=== PATIENT | female | born 1985 | race African-American/Black ===

== ENCOUNTER 2016-10-05 20:28 | Emergency (ER) | payer OTHER ==
[2016-10-05] MEDS ORDERED: Ibuprofen TAB* 400 MG PO ONE (21:05)
[2016-10-05] MEDS ORDERED: Penicillin VK TAB* 250 MG PO ONE ×2 (21:05→21:39)
--- NOTE | 2016-10-05 21:16 | ED ---
Throat Pain/Nasal Congestion - HPI Summary HPI Summary: Patient presents with right sided facial, ear and dental pain since yesterday. - History of Current Complaint Chief Complaint: EDDentalPain Time Seen by Provider: 10/05/16 20:48 Hx Obtained From: Patient Onset/Duration: Gradual Onset Severity: Severe Associated Signs And Symptoms: Positive: Negative Cough: None - Epiglottits Risk Factors Epiglottis Risk Factors: Negative - Allergies/Home Medications Allergies/Adverse Reactions: Allergies Allergy/AdvReac Type Severity Reaction Status Date / Time Eggs or Egg-derived Products Allergy Unknown Unknown Verified 09/09/14 09:21 Reaction Details mushrooms Allergy Unknown Unknown Uncoded 09/09/14 09:21 Reaction Details PMH/Surg Hx/FS Hx/Imm Hx Endocrine/Hematology History: Denies: Hx Diabetes, Hx Thyroid Disease Cardiovascular History: Denies: Hx Hypertension Respiratory History: Reports: Hx Asthma Denies: Hx Chronic Obstructive Pulmonary Disease (COPD) GI History: Denies: Hx Ulcer - Immunization History Date of Tetanus Vaccine: unsure Date of Influenza Vaccine: never Infectious Disease History: No Infectious Disease History: Denies: Hx Clostridium Difficile, Hx Hepatitis, Hx Human Immunodeficiency Virus (HIV), Hx of Known/Suspected MRSA, Hx Shingles, Hx Tuberculosis, Traveled Outside the [place] in Last 30 Days - Family History Known Family History: Positive: Hypertension - Social History Occupation: Employed Full-time Lives: With Family Alcohol Use: Occasionally Substance Use Type: Reports: None Hx Tobacco Use: Yes Smoking Status (MU): Light Every Day Tobacco Smoker Length of Time of Smoking/Using Tobacco: 1/2 ppd Cessation Counseling: Patient Advised to Stop Review of Systems Negative: Fever, Chills Positive: Dental Pain, Ear Ache Negative: Cough All Other Systems Reviewed And Are Negative: Yes Physical Exam Triage Information Reviewed: Yes Vital Signs On Initial Exam: Initial Vitals Temp Pulse Resp BP 98.2 F 103 20 151/86 10/05/16 20:34 10/05/16 20:34 10/05/16 20:34 10/05/16 20:34 Vital Signs Reviewed: Yes Appearance: Positive: Well-Appearing, Pain Distress, Obese Skin: Positive: Warm, Skin Color Reflects Adequate Perfusion, Dry, Soft Head/Face: Positive: Normal Head/Face Inspection Eyes: Positive: EOMI, JAMES, Conjunctiva Clear ENT: Positive: Hearing grossly normal, Pharynx normal, TMs normal - canal is normal but has either a hair or insect leg in the canal Dental: Positive: Percussion Tenderness @ - right lower wisdom tooth with gum edema and mild erythema Neck: Positive: Supple, Tenderness @, Enlarged Nodes @ - right preauricular Respiratory/Lung Sounds: Positive: Breath Sounds Present Cardiovascular: Positive: RRR Neurological: Positive: Sensory/Motor Intact, Alert, Oriented to Person Place, Time, NV Bundle Intact Distally Psychiatric: Positive: Affect/Mood Appropriate AVPU Assessment: Alert Diagnostics - Vital Signs Vital Signs Temp Pulse Resp BP Pulse Ox 10/05/16 20:56 98.2 F 95 20 151/86 98 10/05/16 20:34 98.2 F 103 20 151/86 - Laboratory Lab Statement: Any lab studies that have been ordered have been reviewed, and results considered in the medical decision making process. EENT Course/Dx - Differential Diagnoses Differential Diagnoses: Cerumen Impaction, Dental Abscess, Dental Caries, Fractured Tooth, Gingivitis, Odontogenic Pain, Otitis Externa, Otitis Media, Perforated TM, Periodontic Abscess, Periodontic Disease - Diagnoses Provider Diagnoses: Otitis externa, Dental infection Discharge - Discharge Plan Condition: Stable Disposition: HOME Prescriptions: Penicillin VK TAB 500 MG(NF) [Penicillin VK 500 mg Tab(NF)] 500 mg PO QID #27 tab traMADol TAB* [Ultram*] 50 mg PO Q12H PRN #6 tab MDD 2 PRN Reason: Pain Patient Education Materials: Otitis Externa (ED), Toothache (ED) Referrals: Yuko Fenton MD [Primary Care Provider] - Additional Instructions: Please use 4 drops in your right ear twice daily for 7 days. Take the oral antibiotic until it is completely gone. Use ibuprofen 600 mg three times daily with meals for the next 3-5 days to decrease pain and swelling. Add Tramadol as needed for pain. Call one of the number listed for a dentist and follow-up with your primary care provider as needed if symptoms don't resolve. Return to the emergency department if your symptoms worsen.
[2016-10-05] MEDS ORDERED: traMADol TAB* 50 MG PO ONE (21:39)
[2016-10-05] MEDS ORDERED: Ciproflox/Dexameth OTIC.SUSP* 7.5 ML BTL RIGHT EAR ONE (22:00)
[2016-10-05 22:12] VITALS: BP 146/84
== END 2016-10-05 22:10 | disposition home or self-care (01) ==
LOC: ED 20:28
DX: K04.7 Periapical abscess without sinus (principal); K08.89 Other specified disorders of teeth and supporting structures; F17.210 Nicotine dependence, cigarettes, uncomplicated; H60.90 Unspecified otitis externa, unspecified ear; H92.09 Otalgia, unspecified ear
CPT/HCPCS: 99282; A9270-GY

== ENCOUNTER 2017-01-10 19:46 | Emergency (ER) | payer BC, OTHER ==
[2017-01-10 21:42] LABS: Urine Bilirubin Negative (Negative); Urine Glucose Negative (Negative); Urine Nitrite Negative (Negative)
[2017-01-10 22:26] LABS: Hematocrit 45 % (35-47); Hemoglobin 14.8 g/dl (12.0-16.0); Mean Corpuscular HGB Conc 33 g/dl (31-36); Mean Corpuscular Hemoglobin 31 pg (27-31); Mean Corpuscular Volume 93 fL (80-97); Mean Platelet Volume 8 um3 (7.4-10.4); Red Blood Count 4.79 10^6/ul (4.0-5.4); Red Cell Distribution Width 14 % (10.5-15); White Blood Count 9.9 10^3/ul (3.5-10.8)
[2017-01-10 22:42] LABS: ALT 18 U/L (7-52); Albumin 4.1 g/dL (3.2-5.2); Alkaline Phosphatase 76 U/L (34-104); BUN/Creatinine Ratio 15.9 (8-20); Blood Urea Nitrogen 13 mg/dL (6-24); C Reactive Protein 3.17 mg/L (< 5.00); CO2 Carbon Dioxide 25 mmol/L (22-32); Chloride 105 mmol/L (101-111); EGFR African American 103.9 (>60); EGFR Non-African American 80.8 (>60); Globulin 3.5 g/dL (2-4); Glucose 85 mg/dL (70-100); Lipase 13 U/L (11.0-82.0); Sodium 137 mmol/L (133-145); Total Protein 7.6 g/dL (6.4-8.9)
[2017-01-10 22:46] LABS: Anion Gap 7 mmol/L (2-11)
[2017-01-11] MEDS ORDERED: Iohexol 300* (CONTRAST) 10 ML SDV IV ONE (00:16)
[2017-01-11] MEDS ORDERED: Ondansetron INJ* 2 MG/ML VIAL IV ONE (01:02)
[2017-01-11 01:42] VITALS: BP 136/74
[2017-01-11] MEDS ORDERED: Ketorolac INJ* 30 MG/ML 1 ML VIAL IV PUSH ONE (02:07)
[2017-01-11] MEDS ORDERED: Ketorolac INJ* 30 MG/ML 1 ML VIAL ONE (02:08)
--- NOTE | 2017-01-11 07:57 | RAD ---
CLINICAL HISTORY: Right lower quadrant pain COMPARISON: April 02, 2012 TECHNIQUE: Multiple contiguous axial CT scans were obtained of the abdomen and pelvis after the administration of intravenous contrast. Coronal and sagittal multiplanar reformations are submitted for review. Oral contrast was administered. Delayed images were obtained through the abdomen and pelvis. FINDINGS: LUNG BASES: The lung bases are clear. LIVER: The liver is mildly enlarged measuring up to 19 cm in long axis. BILE DUCTS: There is no intrahepatic or extrahepatic biliary dilatation. GALLBLADDER: The gallbladder is normal, without pericholecystic inflammatory change. PANCREAS: The pancreas is normal, without mass or ductal dilatation. SPLEEN: Normal in size and appearance. UPPER GI TRACT: Evaluation of the gastrointestinal tract is limited by incomplete gastric distention. The upper GI tract is unremarkable. SMALL BOWEL AND MESENTERY: The small bowel is normal in contour, course, and caliber. There is no obstruction or dilatation. COLON: The colon is normal in contour, course, caliber. There is no pericolonic inflammatory change. There is a tubular, vermiform, hollow viscus that is blind ending, and originates from the cecum, consistent with a normal appendix. There is no periappendiceal inflammatory change. This is best seen on axial images 102 through 117 ADRENALS: Normal bilaterally. KIDNEYS: The kidneys are normal in shape, size, contour, and axis. There is no hydronephrosis or nephrolithiasis. BLADDER: The bladder is smooth in contour. PELVIC ORGANS: There is a 1.5 cm right ovarian complicated cyst. The pelvic organs are otherwise unremarkable. AORTA: The aorta is normal. IVC: Unremarkable LYMPH NODES: There is no lymphadenopathy by size criteria. ABDOMINAL WALL: There is no evidence for abdominal wall hernia. BONES AND SOFT TISSUES: Unremarkable OTHER: None IMPRESSION: 1. RIGHT OVARIAN CYST, LIKELY A CORPUS LUTEUM CYST. 2. NORMAL APPENDIX. 3. MILD HEPATOMEGALY
--- NOTE | 2017-01-30 06:46 | ED ---
chidi Krishnan Timothy, scribed for Niall Alfred MD on 01/10/17 at 2236 . Abdominal Pain/Female - HPI Summary HPI Summary: Lyric Panchal is a 31 yo female presenitng to [facility] with sudden onset 7/10 RLQ abd pain gradually worsening for the past 2 days, accompanied by nausea. She has self-medicated with tylenol with no relief. She denies fever or any Hx of similar Sx. Her MHx includes asthma, bronchitis, tobacco use. - History of Current Complaint Chief Complaint: EDAbdPain Stated Complaint: RT SIDE PAIN/SENT FROM URGENT CARE Time Seen by Provider: 01/10/17 22:31 Hx Obtained From: Patient Hx Last Menstrual Period: 07/30/14 Onset/Duration: Sudden Onset, Lasting Days, Still Present, Worse Since - now Timing: Days Severity Initially: Moderate Severity Currently: Moderate Pain Intensity: 7 Pain Scale Used: 0-10 Numeric Location: Discrete At: RLQ Radiates: No Associated Signs and Symptoms: Positive: Nausea. Negative: Fever Allergies/Adverse Reactions: Allergies Allergy/AdvReac Type Severity Reaction Status Date / Time Eggs or Egg-derived Products Allergy Unknown Unknown Verified 01/10/17 20:06 Reaction Details mushrooms Allergy Unknown Unknown Uncoded 01/10/17 20:06 Reaction Details PMH/Surg Hx/FS Hx/Imm Hx Endocrine/Hematology History: Denies: Hx Diabetes, Hx Thyroid Disease Cardiovascular History: Denies: Hx Hypertension Respiratory History: Reports: Hx Asthma Denies: Hx Chronic Obstructive Pulmonary Disease (COPD) GI History: Denies: Hx Ulcer - Immunization History Date of Tetanus Vaccine: unsure Date of Influenza Vaccine: never Infectious Disease History: Denies: Hx Clostridium Difficile, Hx Hepatitis, Hx Human Immunodeficiency Virus (HIV), Hx of Known/Suspected MRSA, Hx Shingles, Hx Tuberculosis, Traveled Outside the [place] in Last 30 Days - Family History Known Family History: Positive: Hypertension, Diabetes Negative: Cardiac Disease - Social History Alcohol Use: Occasionally Substance Use Type: Reports: None Hx Tobacco Use: Yes Smoking Status (MU): Light Every Day Tobacco Smoker Length of Time of Smoking/Using Tobacco: 1/2 ppd Review of Systems Constitutional: Negative Negative: Fever Eyes: Negative ENT: Negative Cardiovascular: Negative Respiratory: Negative Positive: Abdominal Pain, Nausea Genitourinary: Negative Musculoskeletal: Negative Skin: Negative Neurological: Negative Psychological: Normal All Other Systems Reviewed And Are Negative: Yes Physical Exam Triage Information Reviewed: Yes Vital Signs On Initial Exam: Initial Vitals Temp Pulse Resp BP Pulse Ox 99.2 F 94 18 155/106 97 01/10/17 20:06 01/10/17 20:06 01/10/17 20:06 01/10/17 20:06 01/10/17 20:06 Vital Signs Reviewed: Yes Appearance: Positive: Well-Appearing, Pain Distress - mild discomfort Skin: Positive: Warm Head/Face: Positive: Normal Head/Face Inspection Eyes: Positive: JAMES ENT: Positive: Hearing grossly normal Neck: Positive: Supple Respiratory/Lung Sounds: Positive: Clear to Auscultation, Breath Sounds Present Cardiovascular: Positive: RRR Abdomen Description: Positive: Soft, Other: - mild rlq tenderness. Negative: Distended, Guarding Bowel Sounds: Positive: Present Musculoskeletal: Positive: Strength/ROM Intact Neurological: Positive: Alert, Oriented to Person Place, Time Psychiatric: Positive: Affect/Mood Appropriate Diagnostics - Vital Signs Vital Signs Temp Pulse Resp BP Pulse Ox 01/10/17 21:38 98.3 F 72 18 133/81 98 01/10/17 20:06 99.2 F 94 18 155/106 97 - Laboratory Lab Results: Lab Results 01/10/17 01/10/17 Range/Units 21:05 22:20 WBC 9.9 (3.5-10.8) 10^3/ul RBC 4.79 (4.0-5.4) 10^6/ul Hgb 14.8 (12.0-16.0) g/dl Hct 45 (35-47) % MCV 93 (80-97) fL MCH 31 (27-31) pg MCHC 33 (31-36) g/dl RDW 14 (10.5-15) % Plt Count 269 (150-450) 10^3/ul MPV 8 (7.4-10.4) um3 Neut % (Auto) 59.3 (38-83) % Lymph % (Auto) 32.1 (25-47) % [place] % (Auto) 6.4 (1-9) % Eos % (Auto) 1.4 (0-6) % Baso % (Auto) 0.8 (0-2) % Absolute Neuts (auto) 5.8 (1.5-7.7) 10^3/ul Absolute Lymphs (auto) 3.2 (1.0-4.8) 10^3/ul Absolute Monos (auto) 0.6 (0-0.8) 10^3/ul Absolute Eos (auto) 0.1 (0-0.6) 10^3/ul Absolute Basos (auto) 0.1 (0-0.2) 10^3/ul Absolute Nucleated RBC 0.01 10^3/ul Nucleated RBC % 0.1 Urine Color Yellow Urine Appearance Clear Urine pH 5.0 (5-9) Ur Specific [place] 1.021 (1.010-1.030) Urine Protein Negative (Negative) Urine Ketones Negative (Negative) Urine Blood Negative (Negative) Urine Nitrate Negative (Negative) Urine Bilirubin Negative (Negative) Urine Urobilinogen Negative (Negative) Ur Leukocyte Esterase Negative (Negative) Urine Glucose Negative (Negative) Result Diagrams: 01/10/17 22:20 01/10/17 22:20 Lab Statement: Any lab studies that have been ordered have been reviewed, and results considered in the medical decision making process. - CT A/P CT Interpretation: Positive (See Comments) - Findings: There is a 1.5 cm colapsing right corpus luteum cyst. No bowel obstruction free air or free fluid. Negative for diverticulitis or colitis. Normal appendix visualized. Normal kidneys, urinary tract, and urinary bladder. Normal liver. Normal spleen. Normal pancreas. Normal gallbladder. Normal adrenal glands. 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 Pt had questions answered to her satisfaction. Abdominal Pain Fem Course/Dx - Course Course Of Treatment: Lyric Panchal is a 31 yo female presenting to [facility] with 7 /10 RLQ abd pain worsening for the past 2 days accompanied by nausea. Pt medication list reviewed this visit. In the ED course she received zofran for nausea control. Her CT A/P suggests a 1.5 cm collapsing right corpus luteum cyst. After clinical examination and review of her lab and imaging studies, she will be discharged home with right ovarian cyst with appropriate instructions. - Diagnoses Differential Diagnosis: Positive: Ovarian Cyst Provider Diagnoses: Right ovarian cyst Discharge - Discharge Plan Condition: Improved Disposition: HOME Prescriptions: Naproxen TAB* [Naprosyn 250 mg TAB*] 500 mg PO BID #30 tab Patient Education Materials: Ovarian Cyst (ED) Referrals: Yuko Fenton MD [Primary Care Provider] - 2 Days Annie Beaulieu MD [Medical Doctor] - 2 Days Additional Instructions: Please follow up with your primary care physician and Dr. Beaulieu ([employer]) regarding your visit to the emergency department today. Return to the emergency department with any new or recurring symptoms. The documentation as recorded by the chidi avalos Timothy accurately reflects the service I personally performed and the decisions made by me, Niall Alfred MD.
== END 2017-01-11 02:44 | disposition home or self-care (01) ==
LOC: ED 19:46
DX: N83.201 Unspecified ovarian cyst, right side (principal); R11.0 Nausea; Z32.02 Encounter for pregnancy test, result negative; J45.909 Unspecified asthma, uncomplicated; F17.210 Nicotine dependence, cigarettes, uncomplicated
CPT/HCPCS: 36415; 74177; 80053; 81003; 83605; 83690; 84702; 85025; 86140; 96374; 96375; 99283; J1885; J2405; Q9967

== ENCOUNTER 2017-02-07 16:00 | Emergency (ER) | payer SELFPAY ==
[2017-02-07] MEDS ORDERED: Ketorolac INJ* 30 MG/ML 1 ML VIAL IV ONE (16:50)
[2017-02-07 17:16] LABS: Hematocrit 44 % (35-47); Hemoglobin 14.6 g/dl (12.0-16.0); Mean Corpuscular HGB Conc 33 g/dl (31-36); Mean Corpuscular Hemoglobin 31 pg (27-31); Mean Corpuscular Volume 93 fL (80-97); Mean Platelet Volume 8 um3 (7.4-10.4); Red Blood Count 4.74 10^6/ul (4.0-5.4); Red Cell Distribution Width 14 % (10.5-15); White Blood Count 8.5 10^3/ul (3.5-10.8)
[2017-02-07 17:32] LABS: ALT 28 U/L (7-52); Albumin 4.3 g/dL (3.2-5.2); Alkaline Phosphatase 70 U/L (34-104); BUN/Creatinine Ratio 16.1 (8-20); Blood Urea Nitrogen 10 mg/dL (6-24); CO2 Carbon Dioxide 26 mmol/L (22-32); Calcium 9.3 mg/dL (8.6-10.3); Chloride 105 mmol/L (101-111); EGFR African American 143.5 (>60); EGFR Non-African American 111.6 (>60); Globulin 3.5 g/dL (2-4); Glucose 79 mg/dL (70-100); Sodium 136 mmol/L (133-145); Total Protein 7.8 g/dL (6.4-8.9)
[2017-02-07 17:35] LABS: Anion Gap 5 mmol/L (2-11)
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
[2017-02-07 18:46] VITALS: BP 147/89
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
== END 2017-02-07 18:54 | disposition home or self-care (01) ==
LOC: ED 16:00
DX: R07.9 Chest pain, unspecified (principal); M25.579 Pain in unspecified ankle and joints of unspecified foot; R51 Headache; F41.9 Anxiety disorder, unspecified; F17.210 Nicotine dependence, cigarettes, uncomplicated; M54.2 Cervicalgia
CPT/HCPCS: 36415; 70450; 71020; 72125; 80053; 84702; 85025; 96374; 99283; J1885

== ENCOUNTER → 2017-08-17 22:30 | Emergency (ER) | payer SELFPAY ==
[2017-08-18] MEDS: Ondansetron ODT TAB* 4 MG PO ONE (00:43)
[2017-08-18] MEDS: HYDROcodone/ACETAMIN 5-325 MG* 1 TAB PO ONE (00:44)
[2017-08-18] MEDS: Ketorolac INJ* 60 MG/2 ML VIAL IM ONE (00:44)
[2017-08-18] MEDS: Amoxicillin PO (*) 250 MG CAP PO ONE (00:44)
[2017-08-18 00:59] VITALS: BP 150/96
--- NOTE | 2017-08-18 01:44 | ED ---
Throat Pain/Nasal Congestion - HPI Summary HPI Summary: 31 female presents to ED with complaints of right lower dental pain that is radiating to right ear that has been ongoing for the past few days and has worsened today. States she has taken ibuprofen and tylenol and used topical medication without relief. Last dose of ibuprofen was around 2:30pm. No drainage or obvious swelling. Painful to chew and to touch. No sore throat, fever or other complaints. Swelling of gums. No PMHx. Does have a fractured tooth where that pain is coming from. - History of Current Complaint Chief Complaint: EDDentalPain Time Seen by Provider: 08/17/17 23:21 Hx Obtained From: Patient Onset/Duration: Sudden Onset, Lasting Days, Still Present Severity: Severe Associated Signs And Symptoms: Positive: Negative Cough: None - Allergies/Home Medications Allergies/Adverse Reactions: Allergies Allergy/AdvReac Type Severity Reaction Status Date / Time egg Allergy Unknown Verified 08/17/17 22:46 Reaction Details mushrooms Allergy Unknown Unknown Uncoded 08/17/17 22:46 Reaction Details PMH/Surg Hx/FS Hx/Imm Hx Endocrine/Hematology History: Denies: Hx Diabetes, Hx Thyroid Disease Cardiovascular History: Denies: Hx Hypertension Respiratory History: Reports: Hx Asthma Denies: Hx Chronic Obstructive Pulmonary Disease (COPD) GI History: Denies: Hx Ulcer History: Reports: Other Problems/Disorders - polycystic ovaries Denies: Hx Renal Disease Sensory History: Denies: Hx Legally Blind, Hx Deafness Opthamlomology History: Denies: Hx Legally Blind - Surgical History Surgery Procedure, Year, and Place: none - Immunization History Date of Tetanus Vaccine: unsure Date of Influenza Vaccine: never Immunizations Up to Date: Yes Infectious Disease History: No Infectious Disease History: Denies: Hx Clostridium Difficile, Hx Hepatitis, Hx Human Immunodeficiency Virus (HIV), Hx of Known/Suspected MRSA, Hx Shingles, Hx Tuberculosis, Traveled Outside the [place] in Last 30 Days - Family History Known Family History: Positive: Hypertension, Diabetes Negative: Cardiac Disease - Social History Alcohol Use: Occasionally Substance Use Type: Reports: None Hx Tobacco Use: Yes Smoking Status (MU): Heavy Every Day Tobacco Smoker Length of Time of Smoking/Using Tobacco: 1/2 ppd Review of Systems Constitutional: Negative Positive: Dental Pain Cardiovascular: Negative Respiratory: Negative All Other Systems Reviewed And Are Negative: Yes Physical Exam Triage Information Reviewed: Yes Vital Signs On Initial Exam: Initial Vitals Temp Pulse Resp BP Pulse Ox 98.0 F 82 20 174/111 97 08/17/17 22:41 08/17/17 22:41 08/17/17 22:41 08/17/17 22:41 08/17/17 22:41 150/96 on recheck, patient in pain Vital Signs Reviewed: Yes Appearance: Positive: Well-Appearing, No Pain Distress, Well-Nourished Skin: Positive: Warm, Skin Color Reflects Adequate Perfusion, Dry. Negative: Numb, Cyanosis @, Pale, Erythema @ Head/Face: Positive: Normal Head/Face Inspection Eyes: Positive: Conjunctiva Clear ENT: Positive: Pharynx normal, TM bulging - right, TM red, Uvula midline. Negative: Nasal congestion, Tonsillar swelling, Tonsillar exudate Dental: Positive: Percussion Tenderness @, Gross Decay/Caries @, Dental Fracture @ - right lower #1, Cervical Lymphadenopathy. Negative: Abscess @ - no palpable abscess however edema of gums surrounding #1-2 no drainage or other abnormal findings, Cellulitis @ Neck: Positive: Supple, Nontender Respiratory/Lung Sounds: Positive: Clear to Auscultation, Breath Sounds Present. Negative: Rales, Rhonchi, Wheezes Cardiovascular: Positive: Normal, RRR, Pulses are Symmetrical in both Upper and Lower Extremities. Negative: Murmur, Rub Neurological: Positive: Normal Diagnostics - Vital Signs Vital Signs Temp Pulse Resp BP Pulse Ox 08/18/17 00:57 97.9 F 73 22 150/96 97 08/17/17 22:41 98.0 F 82 20 174/111 97 - Laboratory Lab Statement: Any lab studies that have been ordered have been reviewed, and results considered in the medical decision making process. EENT Course/Dx - Course Course Of Treatment: appears to be suffering from tooth infection/ache. given first dose of amoxicillin while in ED, toradaol and norco for pain. given zofran due to patient stating norco makes her sick. continue meds at home. increase fluids. ibuprofen at home. heating pad, follow up dentist. no other concerns at this time. aware of worsening signs and symptoms to watch out for. - Differential Diagnoses Differential Diagnoses: Dental Abscess, Dental Caries, Fractured Tooth, Otitis Externa, Otitis Media - Diagnoses Provider Diagnoses: Dental infection, Toothache, Otitis media of right ear Discharge - Discharge Plan Condition: Stable Disposition: HOME Prescriptions: Amoxicillin PO (*) [Amoxicillin 500 MG CAP*] 500 mg PO Q12H #19 cap HYDROcodone/ACETAMIN 5-325 MG* [[place] 5-325 TAB*] 1 tab PO Q6H PRN #8 tab MDD 2 PRN Reason: Pain Ondansetron ODT TAB* [Zofran 4 MG Odt TAB*] 4 mg PO Q6H PRN #8 tab.odt PRN Reason: Pain Patient Education Materials: Dental Abscess (ED), Toothache (ED) Referrals: Yuko Fenton MD [Primary Care Provider] - Additional Instructions: Take prescribed medication as directed to help with infection and pain. Increase fluid intake and get plenty of rest. Ibuprofen beginning tomorrow at noon-1pm for pain and inflammation. Warm compresses to help with pain. Salt water gargles. Good oral hygiene. Refrain from submerging ear under water. Any new or worsening signs/symptoms please seek medical attention as discussed. Follow up with dentist this week.
== END | disposition home or self-care (01) ==
LOC: ED 22:30
DX: K04.7 Periapical abscess without sinus (principal); H66.91 Otitis media, unspecified, right ear; F17.200 Nicotine dependence, unspecified, uncomplicated
CPT/HCPCS: 96372; 99282; A9270-GY; J1885

== ENCOUNTER 2017-12-27 13:39 | Emergency (ER) | payer BC ==
[2017-12-27] MEDS ORDERED: Clindamycin 600 MG IVPREMIX(* 600 MG/50 ML SDV IV ONE (14:24)
[2017-12-27] MEDS ORDERED: Morphine VIAL* 4 MG/ML VIAL (1 ml vial) IV ONE (14:31)
--- NOTE | 2017-12-27 15:04 | ED ---
Throat Pain/Nasal Congestion - HPI Summary HPI Summary: 32F dental swelling for the past couple days. States she did dental infections that started two weeks ago. She states she started amoxicillin and it didn't get any better so she followed up with her dentist that switched her to clindamycin. States that swelling seemed to get better and then it got worst. She had 3 teeth pulled today but dentist. They told her if swelling got worst to come to ED for antibiotics. She denies any fevers. States the swelling continues to increase. She is unable to open up her mouth fully. She also admits to a sore throat. No change in voice. No shortness or shortness of breath. - History of Current Complaint Chief Complaint: EDDentalPain Time Seen by Provider: 12/27/17 13:56 - Allergies/Home Medications Allergies/Adverse Reactions: Allergies Allergy/AdvReac Type Severity Reaction Status Date / Time egg Allergy Unknown Verified 12/27/17 13:53 Reaction Details mushrooms Allergy Unknown Unknown Uncoded 12/27/17 13:53 Reaction Details PMH/Surg Hx/FS Hx/Imm Hx Endocrine/Hematology History: Denies: Hx Diabetes, Hx Thyroid Disease Cardiovascular History: Denies: Hx Hypertension Respiratory History: Reports: Hx Asthma Denies: Hx Chronic Obstructive Pulmonary Disease (COPD) GI History: Denies: Hx Ulcer History: Reports: Other Problems/Disorders - polycystic ovaries Denies: Hx Renal Disease Sensory History: Denies: Hx Legally Blind, Hx Deafness Opthamlomology History: Denies: Hx Legally Blind - Surgical History Surgery Procedure, Year, and Place: none - Immunization History Date of Tetanus Vaccine: unsure Date of Influenza Vaccine: never Infectious Disease History: No Infectious Disease History: Denies: Hx Clostridium Difficile, Hx Hepatitis, Hx Human Immunodeficiency Virus (HIV), Hx of Known/Suspected MRSA, Hx Shingles, Hx Tuberculosis, Traveled Outside the [place] in Last 30 Days - Family History Known Family History: Positive: Hypertension, Diabetes Negative: Cardiac Disease - Social History Alcohol Use: Occasionally Substance Use Type: Reports: None Hx Tobacco Use: Yes Smoking Status (MU): Heavy Every Day Tobacco Smoker Length of Time of Smoking/Using Tobacco: 1/2 ppd Review of Systems Negative: Fever Positive: Dental Pain, Other - right sided facial swelling Negative: Chest Pain Negative: Shortness Of Breath All Other Systems Reviewed And Are Negative: Yes Physical Exam Triage Information Reviewed: Yes Vital Signs On Initial Exam: Initial Vitals Temp Pulse Resp BP Pulse Ox 98.1 F 73 16 170/100 97 12/27/17 13:48 12/27/17 13:48 12/27/17 13:48 12/27/17 13:48 12/27/17 13:48 Vital Signs Reviewed: Yes Appearance: Positive: Well-Appearing Skin: Positive: Warm, Dry Head/Face: Positive: Normal Head/Face Inspection, Other - swelling to right side of face Eyes: Positive: Normal, EOMI, AJMES, Conjunctiva Clear ENT: Positive: TMs normal, Trismus. Negative: Muffled voice Dental: Positive: Gross Decay/Caries @ - throughout, Other - while not let touch mouth Neck: Positive: Supple, Tenderness @ - right cervical, Enlarged Nodes @ - right cervical Respiratory/Lung Sounds: Positive: Clear to Auscultation, Breath Sounds Present Cardiovascular: Positive: Normal, RRR Abdomen Description: Positive: Nontender, Soft Bowel Sounds: Positive: Present Musculoskeletal: Positive: Normal Neurological: Positive: Normal Psychiatric: Positive: Normal Diagnostics - Vital Signs Vital Signs Temp Pulse Resp BP Pulse Ox 12/27/17 13:48 98.1 F 73 16 170/100 97 - Laboratory Result Diagrams: 12/27/17 15:00 12/27/17 15:00 Lab Statement: Any lab studies that have been ordered have been reviewed, and results considered in the medical decision making process. - CT maxillaryfacial CT Interpretation: Positive (See Comments) - IMPRESSION: #. The RIGHT mandibular third molar is absent and there is a well-demarcated lucency at the empty tooth socket without suspicious aggressive appearing osteolysis or periosteal reaction. No soft tissue plane abscess collection evident. Mild subcutaneous edema at the RIGHT buccal region. #. RIGHT greater than LEFT neck probable reactive lymph nodes without lymphadenopathy by short axis size criteria. CT Interpretation Completed By: Radiologist EENT Course/Dx - Course Course Of Treatment: 32F dental swelling for the past couple days. States she did dental infections that started two weeks ago. She states she started amoxicillin and it didn't get any better so she followed up with her dentist that switched her to clindamycin. States that swelling seemed to get better and then it got worst. She had 3 teeth pulled today but dentist. They told her if swelling got worst to come to ED for antibiotics. She denies any fevers. States the swelling continues to increase. She is unable to open up her mouth fully. She also admits to a sore throat. No change in voice. No shortness or shortness of breath. on exam has swelling noted to right side of face. pos trismus. CT no abscess. wbc normal. lactic normal. will have continue clindamycin. patient understand and agrees with plan. - Differential Diagnoses Differential Diagnoses: Dental Abscess, Dental Caries, Fractured Tooth - Diagnoses Provider Diagnoses: Dental infection Discharge - Sign-Out/Discharge Documenting (check all that apply): Discharge/Admit/Transfer - Discharge Plan Condition: Good Disposition: HOME Patient Education Materials: Dental Abscess (ED) Referrals: Yuko Fenton MD [Primary Care Provider] - Additional Instructions: continue antibiotic as prescribed Take ibuprofen every [address] ice on area Return to ED if develop any new or worsening symptoms - Billing Disposition and Condition Condition: GOOD Disposition: Home
[2017-12-27 15:46] LABS: EGFR Non-African American 93.3 (>60)
[2017-12-27] MEDS ORDERED: Iohexol 300* (CONTRAST) 10 ML SDV IV ONE (15:56)
--- NOTE | 2017-12-27 16:32 | RAD ---
INDICATION: RIGHT-sided dental pain. Neck and facial swelling. COMPARISON: February 07, 2017 CT. TECHNIQUE: Multidetector CT images skull base to lung apices with 50 mL Omnipaque 300 IV contrast. Multiplanar reformation. REPORT: The RIGHT mandibular third molar is absent and there is a well-demarcated lucency at the empty tooth socket without suspicious aggressive appearing osteolysis or periosteal reaction. No soft tissue plane abscess collection evident. Mild subcutaneous edema at the RIGHT buccal region. Symmetric fullness/hypertrophy of the bilateral palatine tonsils. Unremarkable parapharyngeal fat. Unremarkable false and true vocal cords and visualized subglottic airway. Unremarkable thyroid, submandibular, and parotid glands. Upper normal 1.2 cm short axis RIGHT jugulodigastric lymph node. Additional smaller bilateral neck lymph nodes. Negative for lymphadenopathy by short axis size criteria. The orbital and maxillary sinus margins, zygomatic arches, lamina papyracea, base of the maxilla, pterygoid plates, and nasal bones are intact. The mandible is intact. Normal temporal mandibular joint alignment. Metallic piercing at the RIGHT nasal nare noted. IMPRESSION: #. The RIGHT mandibular third molar is absent and there is a well-demarcated lucency at the empty tooth socket without suspicious aggressive appearing osteolysis or periosteal reaction. No soft tissue plane abscess collection evident. Mild subcutaneous edema at the RIGHT buccal region. #. RIGHT greater than LEFT neck probable reactive lymph nodes without lymphadenopathy by short axis size criteria.
[2017-12-27 16:37] LABS: ABS Basophils 0.1 10^3/ul (0-0.2); ABS Eosinophils 0 10^3/ul (0-0.6); ABS Lymphocytes 1.2 10^3/ul (1.0-4.8); ABS Monocytes 0.6 10^3/ul (0-0.8); ABS Neutrophils 8.5 10^3/ul (1.5-7.7); ABS Nucleated RBC 0 10^3/ul; Eosinophil % 0.3 % (0-6); Hematocrit 40 % (35-47); Lymphocyte % 11.3 % (25-47); Mean Corpuscular HGB Conc 33 g/dl (31-36); Mean Corpuscular Hemoglobin 30 pg (27-31); Mean Corpuscular Volume 90 fL (80-97); Nucleated Red Blood Cells % 0; Platelet Count 299 10^3/ul (150-450); Red Blood Count 4.39 10^6/ul (4.00-5.40); Red Cell Distribution Width 15 % (10.5-15); White Blood Count 10.4 10^3/ul (3.5-10.8)
[2017-12-27 17:49] VITALS: BP 170/92
== END 2017-12-27 17:48 | disposition home or self-care (01) ==
LOC: ED 13:39
DX: K04.7 Periapical abscess without sinus (principal); Z72.0 Tobacco use
CPT/HCPCS: 36415; 70491; 80053; 83605; 85025; 86140; 87040; 96374; 96375; 99282; J2270; Q9967

== ENCOUNTER 2018-02-14 20:17 | Emergency (ER) | payer BC ==
--- NOTE | 2018-02-14 22:51 | ED ---
Dizziness - HPI Summary HPI Summary: This is robbie Cash documenting for attending Jillian Cook MD. This patient is a 32 year old F presenting to [facility] accompanied by a male with a chief complaint of dizziness she describes as the room spinning since yesterday. The patient rates the pain 9/10 in severity. Symptoms aggravated by movement. Patient reports dizziness, nausea, CASTREJON, and vomiting. Hx migraines and PCOS. [facility] 01-12-18. - History Of Current Complaint Chief Complaint: EDNauseaVomitDiarrh Stated Complaint: NAUSEA/DIZZINESS Time Seen by Provider: 02/14/18 22:39 Hx Obtained From: Patient Onset/Duration: Still Present Timing: Constant Severity Initially: Moderate Severity Currently: Moderate Character: Room Spinning, Dizzy Aggravating Factor(s): Other - movement Associated Signs And Symptoms: Positive: Nausea, Vomiting, Other: - CASTREJON - Allergies/Home Medications Allergies/Adverse Reactions: Allergies Allergy/AdvReac Type Severity Reaction Status Date / Time egg Allergy Unknown Verified 02/14/18 20:28 Reaction Details mushrooms Allergy Unknown Unknown Uncoded 02/14/18 20:28 Reaction Details PMH/Surg Hx/FS Hx/Imm Hx Endocrine/Hematology History: Denies: Hx Diabetes, Hx Thyroid Disease Cardiovascular History: Denies: Hx Hypertension Respiratory History: Reports: Hx Asthma Denies: Hx Chronic Obstructive Pulmonary Disease (COPD) GI History: Denies: Hx Ulcer History: Reports: Other Problems/Disorders - polycystic ovaries Denies: Hx Renal Disease Sensory History: Denies: Hx Legally Blind, Hx Deafness Opthamlomology History: Denies: Hx Legally Blind Neurological History: Reports: Hx Migraine - Surgical History Surgery Procedure, Year, and Place: none - Immunization History Date of Tetanus Vaccine: unsure Date of Influenza Vaccine: never Infectious Disease History: No Infectious Disease History: Denies: Hx Clostridium Difficile, Hx Hepatitis, Hx Human Immunodeficiency Virus (HIV), Hx of Known/Suspected MRSA, Hx Shingles, Hx Tuberculosis, Traveled Outside the [place] in Last 30 Days - Family History Known Family History: Positive: Hypertension, Diabetes Negative: Cardiac Disease - Social History Alcohol Use: Occasionally Substance Use Type: Reports: None Hx Tobacco Use: Yes Smoking Status (MU): Heavy Every Day Tobacco Smoker Length of Time of Smoking/Using Tobacco: 1/2 ppd Review of Systems Positive: Vomiting, Nausea Neurological: Other - dizziness Positive: Headache All Other Systems Reviewed And Are Negative: Yes Physical Exam - Summary Physical Exam Summary: VITAL SIGNS: Reviewed. GENERAL: Patient is a well-developed and morbidly obese female who is lying comfortable in the stretcher. Patient is not in any acute respiratory distress. HEAD AND FACE: No signs of trauma. No ecchymosis, hematomas or skull depressions. No sinus tenderness. EYES: PERRLA, EOMI x 2, No injected conjunctiva, no nystagmus. EARS: Hearing grossly intact. Ear canals and tympanic membranes are within normal limits. MOUTH: Oropharynx within normal limits. NECK: Supple, trachea is midline, no adenopathy, no JVD, no carotid bruit, no c- spine tenderness, neck with full ROM. CHEST: Symmetric, no tenderness at palpation LUNGS: Clear to auscultation bilaterally. No wheezing or crackles. CVS: Regular rate and rhythm, S1 and S2 present, no murmurs or gallops appreciated. ABDOMEN: Soft, non-tender. No signs of distention. No rebound no guarding, and no masses palpated. Bowel sounds are normal. EXTREMITIES: FROM in all major joints, no edema, no cyanosis or clubbing. NEURO: Alert and oriented x 3. No acute neurological deficits. Speech is normal and follows commands. SKIN: Dry and warm Triage Information Reviewed: Yes Vital Signs On Initial Exam: Initial Vitals Temp Pulse Resp BP Pulse Ox 98.4 F 88 16 154/94 100 02/14/18 20:25 02/14/18 20:25 02/14/18 20:25 02/14/18 20:25 02/14/18 20:25 Vital Signs Reviewed: Yes Diagnostics - Vital Signs Vital Signs Temp Pulse Resp BP Pulse Ox 02/14/18 20:25 98.4 F 88 16 154/94 100 - Laboratory Result Diagrams: 02/14/18 23:22 02/14/18 23:22 Lab Statement: Any lab studies that have been ordered have been reviewed, and results considered in the medical decision making process. Dizzy Course/Dx - Course Assessment/Plan: This is robbie Cash documenting for attending Jillian Cook MD. This patient is a 32 year old F presenting to [facility] accompanied by a male with a chief complaint of dizziness she describes as the room spinning since yesterday. The patient rates the pain 9/10 in severity. Symptoms aggravated by movement. Patient reports dizziness, nausea, CASTREJON, and vomiting. Hx migraines and PCOS. [facility] 7-13-18. . Test results with no significant abnormalities. In the ED course the patient was given toradol, reglan, benadryl , and IV fluids. Pt has improved with these medications. Patient will be discharged and follow up from PCP. The patient is agreeable with this plan. - Diagnoses Provider Diagnoses: Headache Discharge - Sign-Out/Discharge Documenting (check all that apply): Patient Departure - Discharge Plan Condition: Stable Disposition: HOME Patient Education Materials: Acute Headache (DC) Referrals: Yuko Fenton MD [Primary Care Provider] - 3 Days Additional Instructions: Please return to the emergency department for any new or worsening symptoms. Attestation Statement Scribe Attestation: This is robbie Cash documenting for attending Jillian Cook MD. User Type: Provider with Scribe Provider Attestation: The documentation recorded by the scribe accurately reflects the service I personally performed and the decisions made by me.
[2018-02-14] MEDS ORDERED: Metoclopramide IV* 5 MG/ML 2 ML VIAL IV SLOW PU ONE (23:05)
[2018-02-14] MEDS ORDERED: Ketorolac INJ* 30 MG/ML 1 ML VIAL IV PUSH ONE (23:05)
[2018-02-14] MEDS ORDERED: NS 0.9% 1000 ML* 1,000 ML IV ONE (23:06)
[2018-02-14] MEDS ORDERED: diPHENhydraMINE IV* 50 MG/ML 1 ml VIAL (BENADRYL) IV ONE (23:06)
[2018-02-14 23:48] LABS: ABS Basophils 0 10^3/ul (0-0.2); ABS Eosinophils 0 10^3/ul (0-0.6); ABS Lymphocytes 1.4 10^3/ul (1.0-4.8); ABS Monocytes 0.5 10^3/ul (0-0.8); ABS Neutrophils 6.9 10^3/ul (1.5-7.7); ABS Nucleated RBC 0 10^3/ul; Eosinophil % 0.4 % (0-6); Hematocrit 38 % (35-47); Hemoglobin 12.9 g/dl (12.0-16.0); Lymphocyte % 15.7 % (25-47); Mean Corpuscular HGB Conc 34 g/dl (31-36); Mean Corpuscular Hemoglobin 30 pg (27-31); Mean Corpuscular Volume 90 fL (80-97); Mean Platelet Volume 8.4 um3 (7.4-10.4); Nucleated Red Blood Cells % 0; Platelet Count 287 10^3/ul (150-450); Red Blood Count 4.26 10^6/ul (4.00-5.40); Red Cell Distribution Width 15 % (10.5-15); White Blood Count 8.9 10^3/ul (3.5-10.8)
[2018-02-14 23:52] LABS: EGFR Non-African American 108.8 (>60)
[2018-02-15 03:10] VITALS: BP 134/81
== END 2018-02-15 03:13 | disposition home or self-care (01) ==
LOC: ED 20:17
DX: R11.2 Nausea with vomiting, unspecified (principal); R51 Headache; F17.210 Nicotine dependence, cigarettes, uncomplicated
CPT/HCPCS: 36415; 80053; 83735; 84702; 85025; 96374; 96375; 99283; J1200; J1885; J2765

== ENCOUNTER 2018-02-18 17:49 | Emergency (ER) | payer BC ==
[2018-02-18] MEDS ORDERED: NS 0.9% 1000 ML* 1,000 ML IV ONE (18:17)
[2018-02-18] MEDS ORDERED: Metoclopramide IV* 5 MG/ML 2 ML VIAL IV SLOW PU ONE (18:24)
[2018-02-18] MEDS ORDERED: diPHENhydraMINE IV* 50 MG/ML 1 ml VIAL (BENADRYL) IV ONE (18:24)
[2018-02-18] MEDS ORDERED: Meclizine TAB* 12.5 MG PO ONE (18:24)
--- NOTE | 2018-02-18 18:25 | ED ---
Dizziness - HPI Summary HPI Summary: 32 year old Female presents with dizziness for the past week. States it is worse with head movement. States is worse when she stands up. She denies any change in vision. She admits to nausea and occasional vomiting. States it is worse after she eats. She also admits to chest pain today. States that it is sharp in nature. She denies any change with food for chest pain. She denies any shortness breath. No cough. No abdominal pain. No sore throat. No fevers. She denies any headache. no sinus congestion. - History Of Current Complaint Chief Complaint: EDHeadache Stated Complaint: DIZZY/NAUSEA/CHEST TIGHTNESS Time Seen by Provider: 02/18/18 18:12 - Allergies/Home Medications Allergies/Adverse Reactions: Allergies Allergy/AdvReac Type Severity Reaction Status Date / Time egg Allergy Unknown Verified 02/14/18 20:28 Reaction Details mushrooms Allergy Unknown Unknown Uncoded 02/14/18 20:28 Reaction Details PMH/Surg Hx/FS Hx/Imm Hx Endocrine/Hematology History: Denies: Hx Diabetes, Hx Thyroid Disease Cardiovascular History: Denies: Hx Hypertension Respiratory History: Reports: Hx Asthma Denies: Hx Chronic Obstructive Pulmonary Disease (COPD) GI History: Denies: Hx Ulcer History: Reports: Other Problems/Disorders - polycystic ovaries Denies: Hx Renal Disease Sensory History: Denies: Hx Legally Blind, Hx Deafness Opthamlomology History: Denies: Hx Legally Blind Neurological History: Reports: Hx Migraine - Surgical History Surgery Procedure, Year, and Place: none - Immunization History Date of Tetanus Vaccine: unsure Date of Influenza Vaccine: never Infectious Disease History: No Infectious Disease History: Denies: Hx Clostridium Difficile, Hx Hepatitis, Hx Human Immunodeficiency Virus (HIV), Hx of Known/Suspected MRSA, Hx Shingles, Hx Tuberculosis, Traveled Outside the [place] in Last 30 Days - Family History Known Family History: Positive: Hypertension, Diabetes Negative: Cardiac Disease - Social History Alcohol Use: Occasionally Substance Use Type: Reports: None Hx Tobacco Use: Yes Smoking Status (MU): Heavy Every Day Tobacco Smoker Length of Time of Smoking/Using Tobacco: 1/2 ppd Review of Systems Negative: Fever Positive: Chest Pain Negative: Shortness Of Breath Neurological: Other - dizziness All Other Systems Reviewed And Are Negative: Yes Physical Exam Triage Information Reviewed: Yes Vital Signs On Initial Exam: Initial Vitals Temp Pulse Resp BP Pulse Ox 98.8 F 88 18 155/98 97 02/18/18 17:53 02/18/18 17:53 02/18/18 17:53 02/18/18 17:53 02/18/18 17:53 Vital Signs Reviewed: Yes Appearance: Positive: Well-Appearing Skin: Positive: Warm, Dry Head/Face: Positive: Normal Head/Face Inspection Eyes: Positive: Normal, EOMI, JAMES, Conjunctiva Clear, Other: - nystagmus present ENT: Positive: Normal ENT inspection, Pharynx normal, TMs normal Respiratory/Lung Sounds: Positive: Clear to Auscultation, Breath Sounds Present , Other - nonreproducible chest pain Cardiovascular: Positive: Normal, RRR Abdomen Description: Positive: Nontender, Soft Bowel Sounds: Positive: Present Musculoskeletal: Positive: Normal Neurological: Positive: Sensory/Motor Intact, Alert, Oriented to Person Place, Time, CN Intact II-III, Other - pos hints test. Negative: Sanders-Frazier [place] Test Psychiatric: Positive: Normal - [place] Coma Scale Best Eye Response: 4 - Spontaneous Best Motor Response: 6 - Obeys Commands Best Verbal Response: 5 - Oriented Coma Scale Total: 15 Diagnostics - Vital Signs Vital Signs Temp Pulse Resp BP Pulse Ox 02/18/18 17:53 98.8 F 88 18 155/98 97 - Laboratory Result Diagrams: 02/18/18 18:33 02/18/18 19:46 Lab Statement: Any lab studies that have been ordered have been reviewed, and results considered in the medical decision making process. - Radiology chest Xray Interpretation: No Acute Changes Radiology Interpretation Completed By: Radiologist - EKG No standard instances Cardiac Rate: NL EKG Rhythm: Sinus Rhythm EKG Interpretation: sinus rhythm Dizzy Course/Dx - Course Course Of Treatment: 32 year old Female presents with dizziness for the past week. States it is worse with head movement. States is worse when she stands up. She denies any change in vision. She admits to nausea and occasional vomiting. States it is worse after she eats. She also admits to chest pain today. States that it is sharp in nature. She denies any change with food for chest pain. She denies any shortness breath. No cough. No abdominal pain. No sore throat. No fevers. She denies any headache. no sinus congestion. On exam normal neuro exam. Positive hints test. Nontender chest wall. Lungs clear to auscultation. Abdomen soft nontender. EKG sinus rhythm. Chest x-ray normal. Labs within normal limits except for magnesium 1. Supplemental magnesium with oral magnesium. Meclizine and Zofran given and feeling better. We'll discharge meclizine. Patient understands agrees with plan. - Diagnoses Differential Diagnosis/HQI/PQRI: Benign Paroxysmal Positional Vertigo, Hypovolemia, Labyrinthitis Provider Diagnoses: Dizziness, Chest pain Discharge - Sign-Out/Discharge Documenting (check all that apply): Patient Departure - Discharge Plan Condition: Good Disposition: HOME Prescriptions: Magnesium Chloride EC TAB* [Slow Mag EC TAB*] 64 mg PO DAILY #7 tab.ec Meclizine TAB* [Antivert 12.5 TAB*] 25 mg PO TID #21 tab Ondansetron TAB* [Zofran 4 MG Tab*] 4 mg PO Q6H PRN #12 tab PRN Reason: Nausea Patient Education Materials: Vertigo (ED) Referrals: Yuko Fenton MD [Primary Care Provider] - Additional Instructions: Take meclizine up to 3 tablets a day for vertigo take zofran every 6 hours as needed for nausea take magnesium daily Drink plenty of fluids Follow up with primary within 5 days Return to ED if develop any new or worsening symptoms - Billing Disposition and Condition Condition: GOOD Disposition: Home
[2018-02-18 18:40] LABS: ABS Basophils 0.1 10^3/ul (0-0.2); ABS Eosinophils 0.1 10^3/ul (0-0.6); ABS Lymphocytes 2.6 10^3/ul (1.0-4.8); ABS Monocytes 0.7 10^3/ul (0-0.8); ABS Neutrophils 5.5 10^3/ul (1.5-7.7); ABS Nucleated RBC 0 10^3/ul; Eosinophil % 1.3 % (0-6); Hematocrit 39 % (35-47); Hemoglobin 13.3 g/dl (12.0-16.0); Lymphocyte % 28.8 % (25-47); Mean Corpuscular HGB Conc 34 g/dl (31-36); Mean Corpuscular Hemoglobin 30 pg (27-31); Mean Corpuscular Volume 90 fL (80-97); Mean Platelet Volume 8.3 um3 (7.4-10.4); Nucleated Red Blood Cells % 0; Platelet Count 282 10^3/ul (150-450); Red Blood Count 4.37 10^6/ul (4.00-5.40); Red Cell Distribution Width 15 % (10.5-15)
[2018-02-18 18:57] LABS: EGFR Non-African American 106.9 (>60)
--- NOTE | 2018-02-18 19:25 | RAD ---
HISTORY: chest pain COMPARISONS: February 07, 2017 VIEWS: 4: Frontal dual-energy and lateral views of the chest. FINDINGS: CARDIOMEDIASTINAL SILHOUETTE: The cardiomediastinal silhouette is normal. OSMAR: The osmar are normal. PLEURA: The costophrenic angles are sharp. No pleural abnormalities are noted. LUNG PARENCHYMA: The lungs are clear. ABDOMEN: The upper abdomen is clear. There is no subphrenic gas. BONES AND SOFT TISSUES: No bone or soft tissue abnormalities are noted. OTHER: None. IMPRESSION: NO ACTIVE CARDIOPULMONARY DISEASE.
[2018-02-18] MEDS ORDERED: O ndansetron ODT 4MG 2TAB PRPK 4 MG PAK PO ONE (20:31)
[2018-02-18] MEDS ORDERED: Magnesium Chloride EC TAB* 64 MG PO ONE (20:31)
[2018-02-18] MEDS ORDERED: Ondansetron ODT TAB* 4 MG ONE (20:44)
[2018-02-18 20:55] VITALS: BP 150/94
== END 2018-02-18 20:57 | disposition home or self-care (01) ==
LOC: ED 17:49
DX: R42 Dizziness and giddiness (principal); R07.9 Chest pain, unspecified
CPT/HCPCS: 36415; 71046; 80053; 83735; 84484; 84702; 85025; 85379; 96374; 96375; 99284; A9270-GY; J1200; J2765

== ENCOUNTER 2019-03-22 13:17 | Emergency (ER) | payer BC ==
--- NOTE | 2019-03-22 14:14 | UC ---
Respiratory Complaint HPI - HPI Summary HPI Summary: COUGH AND CONGESTION FOR ONE WEEK. HAD SUBJECTIVE FEVER INITIALLY BUT THAT HAS SINCE RESOLVED. LAST NIGHT DEVELOPED DIZZINESS, NAUSEA AND VOMITING WHICH HAVE PERSISTED TODAY. SHE DENIES HEADACHE OR VISUAL DISTURBANCES. STATES HER ONLY MEDICAL HISTORY IS ASTHMA. - History of Current Complaint Chief Complaint: UCRespiratory Stated Complaint: COUGH NAUSEA VOMITING Time Seen by Provider: 03/22/19 13:33 Hx Obtained From: Patient Hx Last Menstrual Period: unknown Onset/Duration: Gradual Onset, Lasting Days, Still Present Timing: Constant Severity Initially: Moderate Severity Currently: Moderate Pain Intensity: 0 Pain Scale Used: 0-10 Numeric Character: Cough: Nonproductive Aggravating Factors: Nothing Alleviating Factors: Nothing Associated Signs And Symptoms: Positive: URI, Nasal Congestion. Negative: Fever , Wheezing - Allergies/Home Medications Allergies/Adverse Reactions: Allergies Allergy/AdvReac Type Severity Reaction Status Date / Time egg Allergy Unknown Verified 03/22/19 13:28 Reaction Details mushrooms Allergy Unknown Unknown Uncoded 02/14/18 20:28 Reaction Details Home Medications: Home Medications Albuterol inh POWDER (NF) [Proair Respiclick] 1 puff INH Q6HR 03/22/19 [History Confirmed 03/22/19] PMH/Surg Hx/FS Hx/Imm Hx Respiratory History: Asthma - Surgical History Surgical History: None Surgery Procedure, Year, and Place: none - Family History Known Family History: Positive: Hypertension, Diabetes Negative: Cardiac Disease - Social History Alcohol Use: Occasionally Substance Use Type: None Smoking Status (MU): Light Every Day Tobacco Smoker Length of Time of Smoking/Using Tobacco: 1/2 ppd Review of Systems All Other Systems Reviewed And Are Negative: Yes Constitutional: Positive: Negative ENT: Positive: Sore Throat, Sinus Congestion Respiratory: Positive: Cough Cardiovascular: Positive: Negative Gastrointestinal: Positive: Vomiting, Nausea Neurological: Positive: Other - DIZZINESS Physical Exam Triage Information Reviewed: Yes Appearance: Well-Appearing, No Pain Distress, Well-Nourished Vital Signs: Initial Vital Signs Pulse 86 03/22/19 13:18 Resp 16 03/22/19 13:18 Pulse Ox 100 03/22/19 13:18 Vital Signs Reviewed: Yes Eyes: Positive: Conjunctiva Clear, Other: - PROPTOSIS (NORMAL PER PT) ENT: Positive: Hearing grossly normal, Pharynx normal, TMs normal Neck: Positive: Supple, Nontender, No Lymphadenopathy Respiratory Exam: Normal Cardiovascular Exam: Normal Abdomen Description: Positive: Soft Musculoskeletal: Positive: No Edema Neurological: Positive: Alert Psychological: Negative: Age Appropriate Behavior Skin: Negative: Rashes Respiratory Course/Dx - Course Course Of Treatment: PATIENT LIKELY HAS A VIRAL URI HOWEVER BLOOD PRESSURE IS SIGNIFICANTLY ELEVATED AND PATIENT DENIES ANY DIAGNOSIS OF HYPERTENSION. YESTERDAY DEVELOPED DIZZINESS AND NAUSEA. HAS A STRONG FAMILY HISTORY OF HEART DISEASE, CVA, DIABETES, HYPERTENSION. I BELIEVE SHE REQUIRES FURTHER WORK-UP THAN WHAT IS AVAILABLE IN THE URGENT CARE. TO [facility] BY PRIVATE CAR. PT OFFERED TRANSPORT TO THE ER BY AMBULANCE BUT DECLINES. ADVISED THAT BY NOT TRAVELING IN A MONITORED SETTING SHE COULD BE RISKING WORSENING OF HER CONDITION THAT COULD POSE A THREAT TO HER LIFE, HEALTH AND MEDICAL SAFETY. SHE VERBALIZES UNDERSTANDING AND CONTINUES TO DECLINE AMBULANCE TRANSFER. - Differential Dx/Diagnosis Provider Diagnosis: Acute URI, Hypertension Discharge ED - Sign-Out/Discharge Documenting (check all that apply): Patient Departure All imaging exams completed and their final reports reviewed: No Studies - Discharge Plan Condition: Stable Disposition: TRANS [facility]HER [facility] Patient Education Materials: Hypertension (ED) Referrals: Yuko Fenton MD [Primary Care Provider] - 1 Week Additional Instructions: YOU LIKELY HAVE A VIRAL UPPER RESPIRATORY INFECTION THAT WILL RESOLVE ON ITS OWN WITH TIME. NO INDICATION FOR ANTIBIOTICS AT PRESENT. I AM CONCERNED ABOUT YOUR SIGNIFICANTLY ELEVATED BLOOD PRESSURE (170/120, 171/92 ) IN THE SETTING OF ACUTE ONSET OF DIZZINESS AND NAUSEA YESTERDAY. I FEEL YOU WOULD BENEFIT FROM FURTHER MONITORING AND WORKUP THAT IS UNAVAILABLE IN THE URGENT CARE SETTING. GO DIRECTLY TO THE [facility] FROM HERE FOR FURTHER EVALUATION. YOU HAVE DECLINED TRANSFER TO THE ER BY AMBULANCE. BE ADVISED THAT BY NOT TRAVELING IN A MONITORED SETTING YOU COULD BE RISKING WORSENING OF YOUR CONDITION THAT COULD POSE A THREAT TO YOUR LIFE, HEALTH AND MEDICAL SAFETY. - Billing Disposition and Condition Condition: STABLE Disposition: Trans Higher Lvl of Care Fac
== END 2019-03-22 14:13 | disposition short-term general hospital (02) ==
LOC: UCEAST 13:17
DX: J06.9 Acute upper respiratory infection, unspecified (principal); I10 Essential (primary) hypertension; J45.909 Unspecified asthma, uncomplicated
CPT/HCPCS: 99212; G0463

== ENCOUNTER 2019-03-22 14:31 | Emergency (ER) | payer BC ==
--- NOTE | 2019-03-22 15:13 | ED ---
Dizziness - HPI Summary HPI Summary: The patient is a 33 y/o F presenting to [facility] with a chief complaint of dizziness and lightheadedness onset yesterday. She reports that today she also became nauseous with an aching pain in the lower left chest, which prompted her to go to [facility]. She was diagnosed with a viral infection, but she had a very high blood pressure while there, so she was referred here. She additionally c/o shortness of breath and a cough. She denies any blurred vision. Currently, her symptoms are rated 0/10 in severity. PMHx: asthma, no surgeries. FHx: DM, HTN. Current every day cigarette smoker, occasional EtOH, no substance use. Medications reviewed. Allergies noted. - History Of Current Complaint Chief Complaint: EDDizziness Stated Complaint: GENERAL ILLNESS/HIGH BP PER PT Time Seen by Provider: 03/22/19 15:06 Hx Obtained From: Patient Onset/Duration: Still Present, Gradually Timing: Hours - yesterday Severity Initially: Mild Severity Currently: Moderate Character: Lightheaded, Dizzy Aggravating Factor(s): Nothing Alleviating Factor(s): Nothing Associated Signs And Symptoms: Positive: Nausea, Chest Pain - low left chest, SOB. Negative: Visual Changes - Allergies/Home Medications Allergies/Adverse Reactions: Allergies Allergy/AdvReac Type Severity Reaction Status Date / Time egg Allergy Unknown Verified 03/22/19 14:36 Reaction Details mushrooms Allergy Unknown Unknown Uncoded 03/22/19 14:36 Reaction Details PMH/Surg Hx/FS Hx/Imm Hx Endocrine/Hematology History: Denies: Hx Diabetes, Hx Thyroid Disease Cardiovascular History: Denies: Hx Hypercholesterolemia, Hx Hypertension Respiratory History: Reports: Hx Asthma Denies: Hx Chronic Obstructive Pulmonary Disease (COPD) GI History: Denies: Hx Ulcer History: Reports: Other Problems/Disorders - polycystic ovaries Denies: Hx Renal Disease Sensory History: Denies: Hx Legally Blind, Hx Deafness Opthamlomology History: Denies: Hx Legally Blind Neurological History: Reports: Hx Migraine - Surgical History Surgical History: None Surgery Procedure, Year, and Place: none - Immunization History Date of Tetanus Vaccine: unsure Date of Influenza Vaccine: never Infectious Disease History: No Infectious Disease History: Denies: Hx Clostridium Difficile, Hx Hepatitis, Hx Human Immunodeficiency Virus (HIV), Hx of Known/Suspected MRSA, Hx Shingles, Hx Tuberculosis, Traveled Outside the [place] in Last 30 Days - Family History Known Family History: Positive: Hypertension, Diabetes Negative: Cardiac Disease - Social History Alcohol Use: Occasionally Hx Substance Use: No Substance Use Type: Reports: None Hx Tobacco Use: Yes Smoking Status (MU): Light Every Day Tobacco Smoker Length of Time of Smoking/Using Tobacco: 1/ ppd Review of Systems Negative: Blurred Vision Positive: Chest Pain - lower left anterior chest Positive: Shortness Of Breath, Cough Positive: Nausea Neurological: Other - dizziness, lightheadedness Negative: Headache All Other Systems Reviewed And Are Negative: Yes Physical Exam - Summary Physical Exam Summary: VITAL SIGNS: Reviewed. GENERAL: Patient is a well-developed and nourished female who is lying comfortable in the stretcher. Patient is not in any acute respiratory distress. HEAD AND FACE: No signs of trauma. No ecchymosis, hematomas or skull depressions. No sinus tenderness. EYES: PERRLA, EOMI x 2, No injected conjunctiva, no nystagmus. EARS: Hearing grossly intact. Ear canals and tympanic membranes are within normal limits. MOUTH: Oropharynx within normal limits. NECK: Supple, trachea is midline, no adenopathy, no JVD, no carotid bruit, no c- spine tenderness, neck with full ROM. CHEST: Symmetric, no tenderness at palpation. LUNGS: Clear to auscultation bilaterally. No wheezing or crackles. CVS: Regular rate and rhythm, S1 and S2 present, no murmurs or gallops appreciated. ABDOMEN: Soft, non-tender. No signs of distention. No rebound, no guarding, and no masses palpated. Bowel sounds are normal. EXTREMITIES: FROM in all major joints, no edema, no cyanosis or clubbing. NEURO: Alert and oriented x 3. No acute neurological deficits. Speech is normal and follows commands. SKIN: Dry and warm. GCS: 15. Triage Information Reviewed: Yes Vital Signs On Initial Exam: Initial Vitals Temp Pulse Resp BP Pulse Ox 99.0 F 80 20 176/116 99 03/22/19 14:35 03/22/19 14:35 03/22/19 14:35 03/22/19 14:35 03/22/19 14:35 Vital Signs Reviewed: Yes - Tamara Coma Scale Best Eye Response: 4 - Spontaneous Best Motor Response: 6 - Obeys Commands Best Verbal Response: 5 - Oriented Coma Scale Total: 15 Diagnostics - Vital Signs Vital Signs Temp Pulse Resp BP Pulse Ox 03/22/19 14:35 99.0 F 80 20 176/116 99 - Laboratory Result Diagrams: 03/22/19 16:04 03/22/19 16:04 Lab Statement: Any lab studies that have been ordered have been reviewed, and results considered in the medical decision making process. - Radiology CXR Radiology Interpretation Completed By: Radiologist Summary of Radiographic Findings: Impression: No active cardiopulmonary disease is noted. ED physician has reviewed this report. - EKG 1442 Cardiac Rate: NL - 83 bpm EKG Rhythm: Sinus Rhythm Summary of EKG Findings: EKG at 1442 reveals NSR at [address] elevations. 1523 Cardiac Rate: NL - 76 bpm EKG Rhythm: Sinus Rhythm EKG Comparison: No Significant Change - Similar to previous taken today at 1442. Summary of EKG Findings: EKG at 1523 reveals NSR at [address] elevations. Re-Evaluation - Re-Evaluation First Eval Re-Evaluation Time: 15:14 Comment: Patient's BP is 187/100, per nurse Meliton. Second Eval Re-Evaluation Time: 15:57 Change: Improved Comment: Patient's blood pressure is 160/90, per nurse Meliton. Dizzy Course/Dx - Course Assessment/Plan: Patient is a 33 y/o F with chief complaint of dizziness and lightheadedness accompanied by nausea, lower left chest ache, shortness of breath, and cough, with concern for hyptertensive episode after visiting [facility] earlier today. Blood work without any significant abnormality. Chest x-ray impression: No active cardiopulmonary disease. In the ED course the patient was given IV fluids and meclizine for dizziness. The patient also was given labetalol for hypertension. After the patients medications the blood pressure is 140/80. Head CT impression: Pending. Patient will be signed out to Dr. Almanza to f/u Head CT and further disposition. - Diagnoses Provider Diagnoses: Blood pressure elevated without history of HTN, URI (upper respiratory infection) Discharge ED - Sign-Out/Discharge Documenting (check all that apply): Sign-Out Patient Signing out patient TO: Omid Almanza - Patient is a sign-out to Dr. Omid Almanza MD, at change of shift at 1900 on 03/22/19, pending Brain CT and Cervical Spine results and disposition. Patient Received Moderate/Deep Sedation with Procedure: No - Discharge Plan Condition: Good Disposition: HOME Patient Education Materials: Upper Respiratory Infection (ED), Hypertension (ED ) Referrals: Yuko Fenton MD [Primary Care Provider] - 3 Days Additional Instructions: Please contact your primary provider for a followup so they can check on your blood pressure and see if you need medication for this going forward. All the tests we ran tonight were unremarkable and did not show any acutely dangerous problem. - Billing Disposition and Condition Condition: STABLE - Attestation Statements Document Initiated by Rye: Yes Documenting Scribe: Krysten Posadas Provider For Whom Rey is Documenting (Include Credential): Dr. Arian Virgen MD Scribe Attestation: Krysten Krishnan scribed for Dr. Arian Virgen MD on 03/23/19 at 1833. Scribe Documentation Reviewed: Yes Provider Attestation: The documentation as recorded by the Krysten avalos accurately reflects the service I personally performed and the decisions made by me, Dr. Arian Virgen MD Status of Scribtara Document: Viewed
[2019-03-22] MEDS ORDERED: Ondansetron INJ* 2 MG/ML VIAL IV ONE (15:18)
[2019-03-22] MEDS: Labetalol IV* 5 MG/ML 20 ML VIAL IV PUSH ONE ×2 (15:34→16:00)
[2019-03-22 16:15] LABS: ABS Basophils 0.1 10^3/ul (0-0.2); ABS Eosinophils 0.1 10^3/ul (0-0.6); ABS Lymphocytes 2.3 10^3/ul (1.0-4.8); ABS Monocytes 0.5 10^3/ul (0-0.8); ABS Neutrophils 4.9 10^3/ul (1.5-7.7); Hematocrit 38 % (35-47); Hemoglobin 12.9 g/dL (12.0-16.0); Lymphocyte % 28.9 %; Mean Corpuscular HGB Conc 34 g/dL (31-36); Mean Corpuscular Hemoglobin 30 pg (27-31); Mean Corpuscular Volume 90 fL (80-97); Mean Platelet Volume 8.2 fL (7.4-10.4); Nucleated Red Blood Cells % 0.1; Platelet Count 292 10^3/uL (150-450); Red Blood Count 4.26 10^6 /uL (3.70-4.87); Red Cell Distribution Width 15 % (10-15); White Blood Count 7.9 10^3/uL (3.5-10.8)
[2019-03-22] MEDS ORDERED: Meclizine TAB* 12.5 MG PO ONE (16:36)
[2019-03-22 16:46] LABS: Urine Appearance Cloudy; Urine Bilirubin Negative (Negative); Urine Blood Negative (Negative); Urine Color Yellow; Urine Glucose Negative (Negative); Urine Ketones Negative (Negative); Urine Nitrite Negative (Negative); Urine Protein Negative (Negative); Urine Specific Gravity 1.017 (1.010-1.030); Urine Urobilinogen Negative (Negative)
[2019-03-22 17:12] LABS: HCG Pregnancy < 0.60 mIU/mL
[2019-03-22 17:27] LABS: Albumin 4.1 g/dL (3.2-5.2); Anion Gap 10 mmol/L (2-11); CO2 Carbon Dioxide 21 mmol/L (22-32); Calcium 9.1 mg/dL (8.6-10.3); Chloride 106 mmol/L (101-111); Potassium 3.9 mmol/L (3.5-5.0); Sodium 137 mmol/L (135-145)
[2019-03-22 17:33] LABS: ALT 19 U/L (7-52); AST 19 U/L (13-39); Albumin/Globulin Ratio 1.5 (1-3); Alkaline Phosphatase 78 U/L (34-104); BUN/Creatinine Ratio 18.6 (8-20); Blood Urea Nitrogen 13 mg/dL (6-24); EGFR African American 115.9 (>60); EGFR Non-African American 95.8 (>60); Globulin 2.7 g/dL (2-4); Glucose 87 mg/dL (70-100); Total Protein 6.8 g/dL (6.4-8.9)
--- NOTE | 2019-03-22 19:48 | ED ---
Progress - Progress Note Progress Note: This pt is a sign out to Dr. Almanza from Dr. Virgen at shift change 03/22/[address] and disposition. - Results/Orders Results/Orders: Brain CT: No acute intracranial abnormality. ED physician has reviewed this report. Re-Evaluation - Re-Evaluation First Eval Re-Evaluation Time: 15:14 Comment: Patient's BP is 187/100, per nurse Meliton. Second Eval Re-Evaluation Time: 15:57 Change: Improved Comment: Patient's blood pressure is 160/90, per nurse Meliton. Course/Dx - Course Course Of Treatment: This pt is a sign out to Dr. Almanza from Dr. Virgen at shift change 03/22/[address] and disposition. Her brain CT found No acute intracranial abnormality. She will be discharged home with a Dx of a URI and HTN. - Diagnoses Provider Diagnoses: Blood pressure elevated without history of HTN, URI (upper respiratory infection) Discharge ED - Sign-Out/Discharge Documenting (check all that apply): Patient Departure - discharge Patient Received Moderate/Deep Sedation with Procedure: No - Discharge Plan Condition: Good Disposition: HOME Patient Education Materials: Upper Respiratory Infection (ED), Hypertension (ED ) Referrals: Yuko Fenton MD [Primary Care Provider] - 3 Days Additional Instructions: Please contact your primary provider for a followup so they can check on your blood pressure and see if you need medication for this going forward. All the tests we ran tonight were unremarkable and did not show any acutely dangerous problem. - Billing Disposition and Condition Condition: GOOD Disposition: Home - Attestation Statements Document Initiated by Rey: Yes Documenting Scribe: Guzman Floyd Provider For Whom Rey is Documenting (Include Credential): Omid Almanza MD Scribe Attestation: Guzman Krishnan, scribed for Omid Almanza MD on 03/23/19 at 0634. Scribe Documentation Reviewed: Yes Provider Attestation: The documentation as recorded by the Guzman avalos accurately reflects the service I personally performed and the decisions made by me, Omid Almanza MD Status of Scribe Document: Viewed
[2019-03-22 20:01] VITALS: BP 160/98
== END 2019-03-22 20:00 | disposition home or self-care (01) ==
LOC: ED 14:31
DX: R03.0 Elevated blood-pressure reading, without diagnosis of hypertension (principal); J06.9 Acute upper respiratory infection, unspecified; J45.909 Unspecified asthma, uncomplicated; F17.210 Nicotine dependence, cigarettes, uncomplicated
CPT/HCPCS: 36415; 70450; 71045; 80053; 81003; 84702; 85025; 93005; 96374; 96375; 99283; A9270-GY; J2405

== ENCOUNTER 2019-07-21 15:24 | Emergency (ER) | payer BC ==
[2019-07-21] MEDS ORDERED: Ketorolac INJ* 30 MG/ML 1 ML VIAL IM ONE (15:51)
[2019-07-21] MEDS ORDERED: oxyCODONE/Acetamin 5/325 MG* TAB PO ONE (15:51)
[2019-07-21] MEDS ORDERED: Penicillin VK TAB* 250 MG PO ONE (15:51)
--- NOTE | 2019-07-21 15:52 | ED ---
Throat Pain/Nasal Congestion - HPI Summary HPI Summary: 33-year-old female presents with dental pain for the past week. She states she has pain in the left lower jaw. She denies any recent break in her teeth. She states that she has not followed up with a dentist. She was managing pain with ibuprofen but now it is to come unmanageable. States that radiates up to her head and is causing a headache. She denies any swelling to the area. No chest pain or shortness of breath. No difficulty swallowing. - History of Current Complaint Chief Complaint: EDDentalPain Time Seen by Provider: 07/21/19 15:32 - Allergies/Home Medications Allergies/Adverse Reactions: Allergies Allergy/AdvReac Type Severity Reaction Status Date / Time egg Allergy Unknown Verified 07/21/19 15:31 Reaction Details mushrooms Allergy Unknown Unknown Uncoded 07/21/19 15:31 Reaction Details PMH/Surg Hx/FS Hx/Imm Hx Endocrine/Hematology History: Denies: Hx Diabetes, Hx Thyroid Disease Cardiovascular History: Denies: Hx Hypercholesterolemia, Hx Hypertension Respiratory History: Reports: Hx Asthma Denies: Hx Chronic Obstructive Pulmonary Disease (COPD) GI History: Denies: Hx Ulcer History: Reports: Other Problems/Disorders - polycystic ovaries Denies: Hx Renal Disease Sensory History: Denies: Hx Legally Blind, Hx Deafness Opthamlomology History: Denies: Hx Legally Blind Neurological History: Reports: Hx Migraine - Surgical History Surgery Procedure, Year, and Place: none - Immunization History Date of Tetanus Vaccine: unsure Date of Influenza Vaccine: never Infectious Disease History: No Infectious Disease History: Denies: Hx Clostridium Difficile, Hx Hepatitis, Hx Human Immunodeficiency Virus (HIV), Hx of Known/Suspected MRSA, Hx Shingles, Hx Tuberculosis, Traveled Outside the [place] in Last 30 Days - Family History Known Family History: Positive: Hypertension, Diabetes Negative: Cardiac Disease - Social History Alcohol Use: Occasionally Hx Substance Use: No Substance Use Type: Reports: None Hx Tobacco Use: Yes Smoking Status (MU): Light Every Day Tobacco Smoker Length of Time of Smoking/Using Tobacco: 1/2 ppd Review of Systems Negative: Fever Positive: Dental Pain Negative: Chest Pain Negative: Shortness Of Breath All Other Systems Reviewed And Are Negative: Yes Physical Exam Triage Information Reviewed: Yes Vital Signs On Initial Exam: Initial Vitals Temp Pulse Resp BP Pulse Ox 98.4 F 75 19 197/104 100 07/21/19 15:29 07/21/19 15:29 07/21/19 15:29 07/21/19 15:29 07/21/19 15:29 Vital Signs Reviewed: Yes Appearance: Positive: Well-Appearing Skin: Positive: Warm, Dry Head/Face: Positive: Normal Head/Face Inspection Eyes: Positive: Normal, EOMI, JAMES, Conjunctiva Clear ENT: Positive: Pharynx normal, TMs normal Dental: Positive: Other - tenderness right lower teeth, no edema noted. Negative: Abscess @ Neck: Positive: Supple, Nontender, No Lymphadenopathy Respiratory/Lung Sounds: Positive: Clear to Auscultation, Breath Sounds Present Cardiovascular: Positive: Normal, RRR Musculoskeletal: Positive: Normal Neurological: Positive: Normal Psychiatric: Positive: Normal Procedures - Sedation Patient Received Moderate/Deep Sedation with Procedure: No Diagnostics - Vital Signs Vital Signs Temp Pulse Resp BP Pulse Ox 07/21/19 15:29 98.4 F 75 19 197/104 100 - Laboratory Lab Statement: Any lab studies that have been ordered have been reviewed, and results considered in the medical decision making process. Re-Evaluation - Re-Evaluation First Eval Re-Evaluation Time: 16:23 Comment: pain better EENT Course/Dx - Course Course Of Treatment: 33-year-old female presents with dental pain for the past week. She states she has pain in the left lower jaw. She denies any recent break in her teeth. She states that she has not followed up with a dentist. She was managing pain with ibuprofen but now it is to come unmanageable. States that radiates up to her head and is causing a headache. She denies any swelling to the area. No chest pain or shortness of breath. No difficulty swallowing. On exam no edema noted. Tenderness over left lower teeth. We'll place on penicillin. Gives short course of the medication. told follow up with dentist. Patient understands and agrees plan. - Differential Diagnoses Differential Diagnoses: Dental Abscess, Dental Caries, Fractured Tooth - Diagnoses Provider Diagnoses: Dental infection Discharge ED - Sign-Out/Discharge Documenting (check all that apply): Patient Departure - Discharge Plan Condition: Good Disposition: HOME Prescriptions: oxyCODONE/Acetamin 5/325 MG* [Percocet 5/325 TAB*] 1 tab PO Q6H PRN #8 tab MDD 4 PRN Reason: Pain - Severe Penicillin VK TAB* [Penicillin VK 250 mg Tab*] 500 mg PO QID #27 tab Patient Education Materials: Toothache (ED) Referrals: Yuko Fenton MD [Primary Care Provider] - Additional Instructions: Take antibiotics: 4 times a day for 7 days, first dose given in ED Use ibuprofen every 6 hours and percocet for break through pain at night Avoid hard, crunchy food until seen by dentist Follow up with dentist as soon as possible Return to ED if develop any new or worsening symptoms - Billing Disposition and Condition Condition: GOOD Disposition: Home
[2019-07-21 16:34] VITALS: BP 184/111
== END 2019-07-21 16:33 | disposition home or self-care (01) ==
LOC: ED 15:24
DX: K04.7 Periapical abscess without sinus (principal); J45.909 Unspecified asthma, uncomplicated; F17.200 Nicotine dependence, unspecified, uncomplicated
CPT/HCPCS: 96372; 99281; A9270-GY; J1885